=== PATIENT | female | born 2005 | race Hispanic/Latino ===

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

== ENCOUNTER 2023-11-30 22:15 | Emergency (ER) | payer OTHER, SELFPAY ==
[~2023-11-30 22:15] MED LIST: Iopamidol 370 76% 100 ML VIAL ONE
[2023-11-30] MEDS ORDERED: Ketorolac Tromethamine 30 MG (1 mL) VIAL ONE (22:46)
[2023-11-30] MEDS ORDERED: Ondansetron PF 4 MG/2 ML Vial ONE (22:46)
[2023-11-30 22:48] LABS: #Basophils 0.1 thou/uL (0.0-0.2); #Eosinphils 0.1 thou/uL (0.0-0.7); #Monocytes 0.6 thou/uL (0.11-0.59); #Neutrophils 3.5 thou/uL (1.40-6.50); %Basophils 0.9 % (0.0-1.0); %Eosinophils 1.8 % (0.0-10.0); %Lymphocytes 32.1 % (28.0-48.0); %Monocytes 9.2 % (0.0-4.0); %Neutrophils 56.1 % (31.0-61.0); Hematocrit 40.1 % (36.0-47.0); Hemoglobin 13.2 g/dL (12.0-16.0); Mean Corpuscular HGB CONC 32.9 g/dL (32.0-36.0); Mean Corpuscular Hemoglobin 28.1 pg (25.0-35.0); Mean Corpuscular Volume 85.5 fl (78.0-98.0); Platelet Count 172 10x3/uL (130-400); Red Blood Cell (RBC) Count 4.69 mill/uL (4.00-5.20); White Blood Cell (WBC) Count 6.3 10x3/uL (4.8-10.8)
[2023-11-30 22:54] LABS: Bilirubin Negative (Negative); Blood, Urine Large (Negative); Clarity Cloudy (Clear); Glucose, Urine (Dipstick) Negative (Negative); Ketone, Urine Negative (Negative); Leukocyte Trace (Negative); Nitrite Negative (Negative); Pregnancy Test - Urine (BHCG) Negative (Negative); Protein, Urine (Dipstick) Negative (Neg-Trace); Specific Gravity 1.015 (1.002-1.036); Specific Gravity, Urine 1.025 (1.005-1.030); Urobilinogen 0.2 mg/dL (Less than 2)
[2023-11-30 22:55] LABS: Pregu Control Background? CLEAR/WHITE (CLR/WHITE); Pregu Control Bar Appear? YES (CONTROL BAR)
[2023-11-30 22:58] LABS: Bacteria/HPF 4+ HPF (None Seen); CAUTI Indications for Culture Pelvic or flank pain
[2023-11-30 22:59] LABS: Urine Culture Reflex No No
[2023-11-30 23:06] LABS: ALT (SGPT) 9 U/L (8-55); AST (SGOT) 17 U/L (5-34); Albumin 4.3 g/dL (3.5-5.0); Alkaline Phosphatase 60 U/L (40-100); Anion Gap 14 mmol/L (10-20); BUN (Urea Nitrogen) 7 mg/dL (7.0-18.7); Bilirubin, Total 0.5 mg/dL (0.2-1.2); Calc. Creatinine Clearance 0 mL/min (70-130); Calcium 9.6 mg/dL (7.8-10.44); Carbon Dioxide 20 mmol/L (22-29); Chloride 107 mmol/L (98-107); Estimated GFR 107; Globulin 3.7 g/dL (2.4-3.5); Glucose 120 mg/dL (70-105); Lipase 33 U/L (8-78); Potassium 4.4 mmol/L (3.5-5.1); Sodium 137 mmol/L (136-145)
[2023-11-30] MEDS ORDERED: Pantoprazole 40 MG VIAL ONE (23:12)
[2023-12-01] MEDS ORDERED: Cephalexin 250 MG CAP ONE (00:15)
[2023-12-01] MEDS ORDERED: Metoclopramide HCl 10 MG TAB ONE (00:15)
== END 2023-12-01 00:38 | disposition home or self-care (01) ==
LOC: NAV ERS 22:15
DX: K31.89 Other diseases of stomach and duodenum (principal); N39.0 Urinary tract infection, site not specified; F17.290 Nicotine dependence, other tobacco product, uncomplicated
CPT/HCPCS: 74177; 80053; 81001; 81025; 83690; 85025; 96361; 96374; 96375; C9113; J1885; J2405

== ENCOUNTER 2024-05-26 10:41 | Emergency (ER) | payer SELFPAY ==
[2024-05-26] MEDS ORDERED: Sodium Chloride 0.9% 1,000 ML ONE (10:52)
[2024-05-26 11:00] LABS: Bilirubin Negative (Negative); Blood, Urine Moderate (Negative); Clarity Slightly Cloudy (Clear); Glucose, Urine (Dipstick) Negative (Negative); Ketone, Urine Negative (Negative); Leukocyte Large (Negative); Nitrite Negative (Negative); Protein, Urine (Dipstick) 30 mg/dL (Neg-Trace); Specific Gravity, Urine 1.015 (1.005-1.030); Urobilinogen 0.2 mg/dL (Less than 2); pH, Urine 8.5 (5.0-9.0)
[2024-05-26 11:01] LABS: Pregnancy Test - Urine (BHCG) POSITIVE (Negative); Pregu Control Background? CLEAR/WHITE (CLR/WHITE); Pregu Control Bar Appear? YES (CONTROL BAR); Specific Gravity 1.015 (1.002-1.036)
[2024-05-26 11:24] LABS: #Basophils 0.1 thou/uL (0.0-0.2); #Eosinophils 0.1 thou/uL (0.0-0.7); #Lymphocytes 1.5 thou/uL (1.20-3.40); #Monocytes 0.6 thou/uL (0.11-0.59); #Neutrophils 7.2 thou/uL (1.40-6.50); %Basophils 1.1 % (0.0-1.0); %Eosinophils 0.6 % (0.0-10.0); %Lymphocytes 15.6 % (21.0-51.0); %Monocytes 6.4 % (0.0-10.0); %Neutrophils 76.4 % (42.0-75.0); Hematocrit 37.4 % (36.0-47.0); Hemoglobin 12.7 g/dL (12.0-16.0); Mean Corpuscular Hemoglobin 28.2 pg (27.0-31.0); Mean Platelet Volume 8.9 fL (7.4-10.4); Platelet Count 198 10x3/uL (130-400); RBC Distribution Width 11.4 % (11.5-14.5); White Blood Cell (WBC) Count 9.4 10x3/uL (4.8-10.8)
[2024-05-26 11:30] LABS: Bacteria/HPF 4+ HPF (None Seen); CAUTI Indications for Culture Alt mental st,lethar; Transitional Epithelial 0-3 HPF (None Seen); WBC/HPF 21-50 HPF (0-3)
[2024-05-26 11:32] LABS: Epithelial Cast 0-3 LPF (None Seen); Mucous/LPF 1+ LPF (<2+)
[2024-05-26 11:34] LABS: Urine Culture Reflex Yes Yes
[2024-05-26 11:42] LABS: ALT (SGPT) 10 U/L (8-55); AST (SGOT) 19 U/L (5-34); Alkaline Phosphatase 41 U/L (40-110); Anion Gap 14 mmol/L (10-20); BUN (Urea Nitrogen) 5 mg/dL (7.0-18.7); Bilirubin, Total 0.5 mg/dL (0.2-1.2); Calc. Creatinine Clearance 0 mL/min (70-130); Calcium 9.6 mg/dL (7.8-10.44); Carbon Dioxide 22 mmol/L (22-29); Chloride 106 mmol/L (98-107); Estimated GFR 130; Glucose 84 mg/dL (70-105); Potassium 4.1 mmol/L (3.5-5.1); Sodium 138 mmol/L (136-145)
[2024-05-26] MEDS ORDERED: Cephalexin 250 MG CAP ONE (11:43)
== END 2024-05-26 13:40 | disposition home or self-care (01) ==
LOC: NAV ERS 10:41
DX: O23.41 Unspecified infection of urinary tract in pregnancy, first trimester (principal); O99.331 Smoking (tobacco) complicating pregnancy, first trimester; E86.0 Dehydration; N39.0 Urinary tract infection, site not specified; Z3A.00 Weeks of gestation of pregnancy not specified
CPT/HCPCS: 71046; 80053; 81001; 81025; 85025; 87077; 87086; 87186; 93005; 94760; 96360; 96361; J7030